=== PATIENT | male | born 1980 | race Caucasian/White ===

== ENCOUNTER → 2023-08-23 | Outpatient (CLI) | payer BC, SELFPAY ==
[2023-08-23 12:15] LABS: Absolute Lymphocyte Count 1.99 X10^3/uL (0.83-4.51); Absolute Neutrophil Count 5.8 X10^3/uL (2.0-7.7); Basophil# 0.07 X10^3/uL; Basophil% 0.8 % (0-1); Eosinophil# 0.09 X10^3/uL; Hematocrit 32.8 % (40-54); Hemoglobin 8.7 g/dL (13.0-16.5); Lymphocyte # 1.99 X10^3/ul (0.83-4.51); Lymphocyte % 22.1 % (19-41); Mean Corp Hgb Conc 26.5 g/dL (32-36); Mean Corpuscular Volume 75.4 fL (80-94); Mean Platelet Vol. 9.4 fl (6.2-12.0); Monocyte# 0.99 X10^3/uL; NRBC Flagged by Analyzer 0 % (0-5); Neutrophil # 5.84 X10^3/uL (2.7-7.7); Neutrophil % 64.7 % (47-70); POSITIVE MORPHOLOGY YES; Platelet Count 553 K/mm3 (150-450); RBC Distribution Width CV 20.5 % (11.6-14.6); RBC Distribution Width SD 49.4 fl (35.1-43.9); RET-HE 28.7 pg (30-35); Red Blood Count 4.35 M/mm3 (4.6-6.2); Reticulocyte Count 2.83 % (0.5-1.5)
[2023-08-23 12:24] LABS: Differential Indicated SCAN CRITERIA MET
[2023-08-23 12:40] LABS: Vitamin B12 420 pg/mL (211-911)
[2023-08-23 13:04] LABS: Anion Gap 7 (5-15); BUN 14 mg/dL (7-18); BUN/Creat Ratio 12.6 RATIO (10-20); Calcium,Total 9.4 mg/dL (8.5-10.1); Chloride 107 mmol/L (98-107); Creatinine, Serum 1.11 mg/dL (0.70-1.30); EST Glomerular Filtration Rate 77 mL/min (>60); Est Glom Filt Rate - Afr Amer 93 mL/min (>60); Ferritin 16 ng/mL (26-388); Glucose 108 mg/dL (74-106); Iron 18 ug/dL (65-175); Iron Binding Capacity,Total 498 ug/dL (250-450); PERCENT IRON SATURATION 3.6 % (15.0-55.0); Potassium 4.4 mmol/L (3.5-5.1); Sodium Level 140 mmol/L (136-145)
[2023-08-23 13:15] LABS: Anisocytosis 2+; Differential Comment SCANNED; Macrocytosis 1+; Microcytosis 1+
== END | disposition home or self-care (01) ==
LOC: BFHLAB 09:40
PROVIDERS: PCP Family Medicine; Referring Provider Family Medicine; Visit Provider Family Medicine
DX: I10 Essential (primary) hypertension (principal); D50.9 Iron deficiency anemia, unspecified
CPT/HCPCS: 36415; 80048; 82607; 82728; 82746; 83540; 83550; 85025; 85045